=== PATIENT | male | born 1950 | race Caucasian/White ===

== ENCOUNTER 2021-12-16 09:12 | Outpatient (CLI) | payer MEDICARE, SELFPAY | END 2021-12-16 09:13 | disposition home or self-care (01) | LOC: LONREF 09:13 | PROVIDERS: PCP Family Medicine; Visit Provider Nurse Practitioner Family | DX: L08.9 Local infection of the skin and subcutaneous tissue, unspecified (principal); T14.8XXA Other injury of unspecified body region, initial encounter | CPT/HCPCS: 87070; 87186 ==

== ENCOUNTER 2021-12-17 07:57 | Outpatient (CLI) | payer MEDICARE, SELFPAY | END 2021-12-17 07:58 | disposition home or self-care (01) | PROVIDERS: PCP Family Medicine; Visit Provider Physician Assistant Surgical | DX: L97.825 Non-pressure chronic ulcer of other part of left lower leg with muscle involvement without evidence of necrosis (principal); L03.116 Cellulitis of left lower limb | CPT/HCPCS: 11042; 99213 ==

== ENCOUNTER 2021-12-24 08:02 | Outpatient (CLI) | payer MEDICARE, SELFPAY | END 2021-12-24 08:03 | disposition home or self-care (01) | LOC: WOUND 08:02 | PROVIDERS: PCP Family Medicine; Visit Provider Physician Assistant Surgical | DX: L97.825 Non-pressure chronic ulcer of other part of left lower leg with muscle involvement without evidence of necrosis (principal) | CPT/HCPCS: 11043 ==

== ENCOUNTER 2021-12-31 08:10 | Outpatient (CLI) | payer MEDICARE, SELFPAY | END 2021-12-31 08:11 | disposition home or self-care (01) | LOC: WOUND 08:10 | PROVIDERS: PCP Family Medicine; Visit Provider Physician Assistant Surgical | DX: L97.825 Non-pressure chronic ulcer of other part of left lower leg with muscle involvement without evidence of necrosis (principal) | CPT/HCPCS: 97597 ==

== ENCOUNTER 2022-01-07 07:57 | Outpatient (CLI) | payer MEDICARE, SELFPAY | END 2022-01-07 07:58 | disposition home or self-care (01) | PROVIDERS: PCP Family Medicine; Visit Provider Physician Assistant Surgical | DX: L97.825 Non-pressure chronic ulcer of other part of left lower leg with muscle involvement without evidence of necrosis (principal) | CPT/HCPCS: 11042 ==

== ENCOUNTER 2022-01-11 07:57 | Outpatient (CLI) | payer MEDICARE, SELFPAY ==
--- NOTE | 2022-01-11 08:15 | MR_ITS ---
[address] [address] Phone:?[phone] Fax:?[phone] Referring Physician Information: Zechariah Faustin [address] [facility] [address] Phone:?[phone] Fax:?[phone] Patient:Andriy Mortensen D.O.B:?1950 Sex:?Male Phone:?[phone] [facility] MRN:?[id number] Exam Date:?01/11/2022 ? EXAM: MRI EXAMINATION OF THE LEFT TIBIA AND FIBULA CLINICAL INFORMATION: The patient is a 71-year-old with left lower leg pain and swelling. The patient has an area of soft tissue ulceration. Evaluate for osteomyelitis. PRIOR SURGERY: None reported. COMPARISON STUDIES: There are no prior studies available for comparison. TECHNICAL INFORMATION: Imaging was performed on a high-field, 1.5 Jeanie MR scanner. Coronal and sagittal T1 and STIR imaging of the left lower leg was performed in addition to axial T1 and axial STIR imaging. FINDINGS: A capsule stinson the site of the patient's ulceration along the medial aspect of the lower leg, seen on axial series 8 image 17. No definite evidence for well- defined fluid collection can be seen in the region to suggest abscess. No definite evidence for well-defined changes are seen to suggest cellulitis. There is no evidence for abnormality of the visualized portions of the left tibia or left fibula. No evidence for osteomyelitis or bony abnormality can be seen. No musculotendinous abnormalities of the lower leg can be seen. There is no evidence for myotendinous strain or intramuscular mass. No definite neurovascular abnormalities are seen. CONCLUSION: 1. Soft tissue ulceration along the medial aspect of the left lower leg at the site of the patient's symptoms. There is no evidence for associated abscess, well-defined cellulitis, or osteomyelitis. 2. No musculotendinous abnormalities are seen. 3. No neurovascular abnormalities are present. AEC Electronically signed on 01/11/2022 12:13:00 PM by Frandy Hayden M.D.
== END 2022-01-11 07:58 | disposition home or self-care (01) ==
LOC: MRI 07:59
PROVIDERS: PCP Family Medicine; Visit Provider Physician Assistant Surgical
DX: L97.825 Non-pressure chronic ulcer of other part of left lower leg with muscle involvement without evidence of necrosis (principal); M79.605 Pain in left leg
CPT/HCPCS: 73718

== ENCOUNTER 2022-01-14 07:58 | Outpatient (CLI) | payer MEDICARE, SELFPAY | END 2022-01-14 07:59 | disposition home or self-care (01) | LOC: WOUND 07:58 | PROVIDERS: PCP Family Medicine; Visit Provider Physician Assistant Surgical | DX: L97.825 Non-pressure chronic ulcer of other part of left lower leg with muscle involvement without evidence of necrosis (principal) | CPT/HCPCS: 11042 ==

== ENCOUNTER 2022-01-21 07:59 | Outpatient (CLI) | payer MEDICARE, SELFPAY | END 2022-01-21 08:00 | disposition home or self-care (01) | PROVIDERS: PCP Family Medicine; Visit Provider Physician Assistant Surgical | DX: L97.825 Non-pressure chronic ulcer of other part of left lower leg with muscle involvement without evidence of necrosis (principal) | CPT/HCPCS: 11042 ==

== ENCOUNTER 2022-01-28 07:58 | Outpatient (CLI) | payer MEDICARE, SELFPAY | END 2022-01-28 07:59 | disposition home or self-care (01) | LOC: WOUND 07:58 | PROVIDERS: PCP Family Medicine; Visit Provider Physician Assistant Surgical | DX: I87.2 Venous insufficiency (chronic) (peripheral) (principal); L97.825 Non-pressure chronic ulcer of other part of left lower leg with muscle involvement without evidence of necrosis | CPT/HCPCS: 11042 ==

== ENCOUNTER 2022-02-04 08:05 | Outpatient (CLI) | payer MEDICARE, SELFPAY | END 2022-02-04 08:06 | disposition home or self-care (01) | LOC: WOUND 08:05 | PROVIDERS: PCP Family Medicine; Visit Provider Physician Assistant Surgical | DX: I87.2 Venous insufficiency (chronic) (peripheral) (principal); L97.825 Non-pressure chronic ulcer of other part of left lower leg with muscle involvement without evidence of necrosis | CPT/HCPCS: 11042 ==

== ENCOUNTER 2022-02-11 08:13 | Outpatient (CLI) | payer MEDICARE, SELFPAY | END 2022-02-11 08:14 | disposition home or self-care (01) | LOC: WOUND 08:14 | PROVIDERS: PCP Family Medicine; Visit Provider Physician Assistant Surgical | DX: I87.2 Venous insufficiency (chronic) (peripheral) (principal); L97.825 Non-pressure chronic ulcer of other part of left lower leg with muscle involvement without evidence of necrosis | CPT/HCPCS: 11042 ==

== ENCOUNTER 2022-02-18 08:31 | Outpatient (CLI) | payer MEDICARE, SELFPAY | END 2022-02-18 08:32 | disposition home or self-care (01) | LOC: WOUND 08:31 | PROVIDERS: PCP Family Medicine; Visit Provider Physician Assistant Surgical | DX: I87.2 Venous insufficiency (chronic) (peripheral) (principal); L97.825 Non-pressure chronic ulcer of other part of left lower leg with muscle involvement without evidence of necrosis | CPT/HCPCS: 11042 ==

== ENCOUNTER 2022-02-24 14:44 | Outpatient (CLI) | payer MEDICARE, SELFPAY ==
--- NOTE | 2022-02-24 15:00 | CRLHL7_ITS ---
For Patients: As a result of the Century Cures Act, medical imaging exams and procedure reports are released immediately into your electronic medical record. You may view this report before your referring provider. If you have questions, please contact your health care provider. INDICATION: PAD, BILATERAL FEET AND CALF PAIN TECHNIQUE: Bilateral lower extremity arterial duplex ultrasound with color Doppler and spectral waveform analysis. COMPARISON: None. FINDINGS: Multiple sonographic bonner-scale images demonstrate mild atherosclerotic plaque in both lower extremities. Right leg: Systolic velocities are within normal limits. Color Doppler and spectral waveform analysis demonstrates triphasic waveforms are demonstrated throughout with the exception of monophasic waveforms distally at the anterior tibial and dorsalis pedis arteries. Left leg: Systolic velocities are within normal limits. Color Doppler and spectral waveform analysis demonstrates triphasic waveforms are demonstrated throughout with the exception of monophasic waveforms distally at the anterior tibial and dorsalis pedis arteries. IMPRESSION: Minimal bilateral atherosclerosis in the lower extremity arteries contributing to monophasic waveforms distally. No major occlusions or significant stenoses. Dictated by Bhupendra Weinstein MD @ 02/25/2022 8:35:35 AM (Electronically Signed)
== END 2022-02-24 14:45 | disposition home or self-care (01) ==
LOC: US 14:45
PROVIDERS: PCP Family Medicine; Visit Provider Family Medicine
DX: M79.671 Pain in right foot (principal); M79.672 Pain in left foot; M79.662 Pain in left lower leg; I70.203 Unspecified atherosclerosis of native arteries of extremities, bilateral legs; I75.023 Atheroembolism of bilateral lower extremities
CPT/HCPCS: 93926

== ENCOUNTER 2022-02-25 08:09 | Outpatient (CLI) | payer MEDICARE, SELFPAY | END 2022-02-25 08:10 | disposition home or self-care (01) | LOC: WOUND 08:09 | PROVIDERS: PCP Family Medicine; Visit Provider Physician Assistant Surgical | DX: I87.2 Venous insufficiency (chronic) (peripheral) (principal); L97.825 Non-pressure chronic ulcer of other part of left lower leg with muscle involvement without evidence of necrosis | CPT/HCPCS: 97597 ==

== ENCOUNTER 2022-03-04 08:09 | Outpatient (CLI) | payer MEDICARE, SELFPAY | END 2022-03-04 08:10 | disposition home or self-care (01) | LOC: WOUND 08:09 | PROVIDERS: PCP Family Medicine; Visit Provider Physician Assistant Surgical | DX: I87.2 Venous insufficiency (chronic) (peripheral) (principal); L97.825 Non-pressure chronic ulcer of other part of left lower leg with muscle involvement without evidence of necrosis | CPT/HCPCS: 11042 ==

== ENCOUNTER 2022-03-18 08:11 | Outpatient (CLI) | payer MEDICARE, SELFPAY | END 2022-03-18 08:12 | disposition home or self-care (01) | LOC: WOUND 08:11 | PROVIDERS: PCP Family Medicine; Visit Provider Physician Assistant Surgical | DX: I87.2 Venous insufficiency (chronic) (peripheral) (principal); L97.825 Non-pressure chronic ulcer of other part of left lower leg with muscle involvement without evidence of necrosis | CPT/HCPCS: 99212 ==

== ENCOUNTER 2022-04-28 14:53 | Outpatient (CLI) | payer MEDICARE, SELFPAY ==
[2022-04-28 12:56] LABS: Albumin* 4.1 g/dL (3.3-5.0)
[2022-04-28 12:57] LABS: Chloride* 107 mmol/L (96-114); Potassium* 4.4 mmol/L (3.6-5.1); Sodium* 140 mmol/L (135-149)
[2022-04-28 12:59] LABS: Cholesterol* 126 mg/dL (90-199); Creatinine* 0.8 mg/dL (0.5-1.5); Estimated Glomerular Filt Rate 96 ml/min
[2022-04-28 13:00] LABS: Alanine Aminotransferase* 21 U/L (4-50); Alkaline Phosphatase* 87 U/L (40-150); Aspartate Amino Transferase* 20 U/L (12-35); Bilirubin Total* 0.6 mg/dL (0.1-1.5); Blood Urea Nitrogen* 22 mg/dL (7-30); Carbon Dioxide* 26 mmol/L (20-32); Glucose* 112 mg/dL (60-115); Triglycerides* 93 mg/dL (40-149)
[2022-04-28 13:01] LABS: Calcium* 9.1 mg/dL (8.4-10.6); HDL Cholesterol* 43 mg/dL (>=40); LDL Cholesterol Calculated 64 mg/dL (<100)
[2022-04-28 13:31] LABS: PSA Screen* 0.77 ng/mL (0.10-4.00)
== END 2022-04-28 14:54 | disposition home or self-care (01) ==
PROVIDERS: PCP Family Medicine; Visit Provider Family Medicine
DX: E78.5 Hyperlipidemia, unspecified (principal); I10 Essential (primary) hypertension; I48.91 Unspecified atrial fibrillation; Z12.5 Encounter for screening for malignant neoplasm of prostate
CPT/HCPCS: 80053; 80061; 84153

== ENCOUNTER 2022-11-30 08:50 | Outpatient (CLI) | payer MEDICARE, SELFPAY | END 2022-11-30 08:51 | disposition home or self-care (01) | LOC: NFLDREF 12-01 07:43 | PROVIDERS: PCP Family Medicine; Referring Provider Family Medicine; Visit Provider Family Medicine | DX: Z79.01 Long term (current) use of anticoagulants (principal) | CPT/HCPCS: 85610 ==

== ENCOUNTER 2023-01-02 10:18 | Outpatient (CLI) | payer MEDICARE, SELFPAY | END 2023-01-02 10:19 | disposition home or self-care (01) | LOC: NFLDREF 01-06 09:15 | PROVIDERS: PCP Family Medicine; Referring Provider Family Medicine; Visit Provider Family Medicine | DX: Z51.81 Encounter for therapeutic drug level monitoring (principal); Z79.01 Long term (current) use of anticoagulants | CPT/HCPCS: 85610 ==

== ENCOUNTER 2023-05-24 07:33 | Outpatient (CLI) | payer MEDICARE, SELFPAY ==
--- OUTSIDE RECORDS SUMMARY | 2023-05-26 10:35 | XMS_ITS | Clinical Summary ---
Author Name Unknown Organization [facility] Address [place], [place] [address] Care Team Providers Care Steam Press Tender Name Role Phone Darron Garcia MD Primary Care Provider [phone] Allergies No known active allergies Medications Medication Sig Dispensed Refills Start Date End Date Status metoprolol succinate (TOPROL XL) 100 mg Sustained-Release tablet Take 150 mg by mouth once daily. 0 02/04/2017 Active DIGOX 250 mcg tablet Take 250 mcg by mouth once daily. 0 02/04/2017 Active losartan (COZAAR) 100 mg tablet Take 1 tablet by mouth once daily. 0 03/06/2020 Active simvastatin (ZOCOR) 20 mg tablet Take 1 tablet by mouth at bedtime. 0 03/06/2020 Active warfarin (COUMADIN) 5 mg tablet 0 06/19/2020 Active Active Problems Problem Noted Date Diagnosed Date Malignant neoplasm of urinary bladder 02/17/2016 Immunizations Name Administration Dates Next Due Hepatitis A (Adult) 06/12/2007,09/18/20062006 Inactivated Polio Vaccine 09/15/2006 Tdap 09/15/2006 Typhoid (injectable) 09/15/2006 Social History Tobacco Use Types Packs/Day Years Used Date Smoking Tobacco: Light Smoker Cigars Smokeless Tobacco: Never Tobacco Cessation:Ready to Q uit: No; Counseling Given: Yes Alcohol Use Standard Drinks/Week Comments Yes 0 (1 standard drink = 0.6 oz pur e alcohol) few times per week Social Connections Answer Date Recorded Frequency of Communication with Friends and Fami ly Not on file 05/15/2021 Financial Resource Strain Answer Date R ecorded Difficulty of Paying Living Expenses Not on file 05/15/2021 Difficulty of Paying Living Expenses Not on file 05/15/2021 Sex and Gender Information Value Date Recorded Sex Assigned at Not on file Gender Identity Not on file Sexual Orientation Not on file Obstetrics History Last Filed Vital Signs Vital Sign Reading Time Taken Comments Blood Pressure 157/91 07/20/2020 8:56 AM QUILLER MACHINE FIXER Pulse 88 07/20/2020 8:56 AM QUILLER MACHINE FIXER Temperature - - Respiratory Rate 16 07/20/2020 8:56 AM QUILLER MACHINE FIXER Oxygen Saturation 98% 07/20/2020 8:5 6 AM QUILLER MACHINE FIXER Inhaled Oxygen Concentration - - Weight 110 kg (242 lb 8 oz) 07/20/2020 8:56 AM QUILLER MACHINE FIXER Pt weighed with shoes on. Height - - Body Mass Index - - Plan of Treatment Health Maintenance Due Date Last Done Comments Pneumococcal series for age 65+ (1 of 2 - PCV) 1958 Depression screening for age 12+ 1964 BMI (ht and wt on same day) for age 18+ 1970 Hepatitis C screening for ag e 18-79 1970 Colonoscopy through age 75 1997 Lipids for age 45-75 1997 Zoster (shingles) series for age 50+ (1 of 2) 2002 Tetanus booster 09/15/2016 09/15/2006 Medicare Wellness for age 65+ 2017 COVID-19 vaccine series (2022- season) 2023 03/28/2022, 12/06/2021, 03/31/2021, Additional history exists Influenza for age 65+ 01/13/2023 Tdap Completed 09/15/2006 Care Teams Steam Press Tender Relationship Specialty Start Date End Date Darron Garcia MD [address] [place] [phone] PCP - General Family Practice 03/28/18
== END 2023-05-24 07:34 | disposition home or self-care (01) ==
LOC: NFLDREF 05-26 10:33
PROVIDERS: PCP Family Medicine; Referring Provider Family Medicine; Visit Provider Family Medicine
DX: Z00.00 Encounter for general adult medical examination without abnormal findings (principal); E78.5 Hyperlipidemia, unspecified; Z12.5 Encounter for screening for malignant neoplasm of prostate; R73.03 Prediabetes; I48.91 Unspecified atrial fibrillation; Z79.01 Long term (current) use of anticoagulants
CPT/HCPCS: 80053; 80061; G0103

== ENCOUNTER 2023-06-06 11:09 | Outpatient (CLI) | payer MEDICARE, SELFPAY ==
--- OUTSIDE RECORDS SUMMARY | 2023-06-08 13:33 | XMS_ITS | Data Portability ---
Author Name Unknown Address [address] [place] [address] Phone [phone] Organization [facility] Address [address] [facility] [address] [place] [address] Assessment No assessment recorded. Plan of Treatment Reminders Order Date Submit Date Provider Last Modified By Organization Details Last Modified Time Details Appointments None recorded. Lab urinalysis, dipstick 2022 023 [email or web address] [facility], [address], [place], [address], 15:44:09 Referral None recorded. Procedures cystoscopy (PROC) 2022 Kailyn shea Not available 07:37:56 Surgeries None recorded. Imaging None recorded. Medication Orders tamsulosin 0.4 mg capsule 2022 023 [id number], [address] [place], [place], [id number], 16:11:29 Patient TargetsNo targets recorded. Patient InstructionsNo instructions recorded. Reason for Referral None Reported. Results Created Date Observation Date Name Description Value Unit Range Abnormal Flag LastModifiedBy Organization Detail LastModifiedTime 06/21/1906/21/2022 urina lysis , dipst ick pH-Status 7.0 Not Available [facility] [address], [place], [address], 06/21/2022 15:43:44 06/21/19 23 06/21/2022 urina lysis , dipst ick Blood-Status Trace Not Available [facility] [address], [place], [address], 06/21/2022 15:43:44 Result Notes None recorded. Problems Name Status Onset Date Resolution Date Notes Provider Name and Address Organization Details Recorded Time Primary malignant neoplasm of bladder Active 08/29/19 12 188.9 : CARCINOM A-BLADDE R Not Available [facility] 10/31/2019 02:03:14 Problem Notes None recorded. Procedures Surgical History Date Name Laterality Status Provider Name and Address Organization Details Recorded Time 3 Cystoscopy- male completed Jose Lopez MD [address] [place] [address],[address], [address], [facility] 06/21/2022 18:35:04 3 Keflex post Cysto completed Celi caballero [facility] 06/21/2022 15:56:01 procedure on bladder completed Jose Lopez MD [address] [place] [address],[address], [place], [address], [facility] 06/21/2022 15:47:33 Imaging Results None recorded. Procedure Notes None recorded. Medical Equipment None Reported. Allergies No known drug allergies Medications Name Sig Start Date Stop Date Status Note LastModified by Organization Details LastModified Time Zocor 20 mg tablet Take 1 tablet every day by oral route. active Not Available Not Available No t Available Toprol XL 100 mg tablet,exte nded release Take 1 tablet every day by oral route. active Not Available Not Available No t Available tamsulosin 0.4 mg capsule Take 1 capsule every day by oral route. 2022 active Not Available Not Available Not Avai lable Coumadin 5 mg intravenous solution Inject by intraveno us route. active Not Available Not Available No t Available Cozaar 100 mg tablet Take 1 tablet every day by oral route. active Not Available Not Available No t Available Digox 250 mcg (0.25 mg) tablet Take 1 tablet every day by oral route. 06/21 completed Not Available Not Available Not Available Vitals Date Recorded Body weight Body mass index (BMI) Body height Provider Name and Address Organization Details Last Updated DateTime 06/21/2022 778724.39 g 34 kg/m2 177.8 cm Jose Lopez MD [address] [facility] [address], [place], [address] 06/21/2022 15:45:24 Social History Question Answer Notes LastModified by Organizat ion Details LastModified Time Tobacco Smoking Status Former Smoker Jose Lopez MD [address] [facility] [address], [address] 06/21/2022 15:47:09 What Is Your Level Of Alcohol Consumption? Moderate Information not available 06/21/2022 What Is Your Level Of Caffeine Consumption? Moderate Information not available 06/21/2022 When Did You Quit Smoking? 16+yearssincel astcigarette Information not available 06/21/2022 What Was The Date Of Your Most Recent Tobacco Screening? 06/21/2022 Information not available 06/21/2022 Sex: Male Functional Status None recorded. Mental Status None recorded. Family History Nothing Reported. Medical History Condition Response Diabetes N Sexually Transmitted Infection N Other N Bleeding Disorder N High Blood Pressure Y Kidney Stones N Cancer Y Lung Disease N Depression N High Cholesterol Y GERD/Acid Reflux N Heart Disease N Immunizations Vaccine Type Date Status Provider Name and Address Organization Details Recorded Time IPV 09/15/2006 completed Laura caballero [facility] 04/13/2023 09:16:04 influenza, high-dose, quadrivalent 03/23/2021 completed Laura caballero [facility] 04/13/2023 09:16:04 influenza, high-dose, quadrivalent 04/28/2022 [facility] 04/13/2023 09:16:04 COVID-19, mRNA, LNP-S, PF, 100 mcg/0.5mL dose or 50 mcg/0.25mL dose 07/15/2020 completed Laura caballero [facility] 04/13/2023 09:16:04 COVID-19, mRNA, LNP-S, PF, 100 mcg/0.5mL dose or 50 mcg/0.25mL dose 08/14/2020 completed Laura Allar null, [facility] 04/13/2023 09:16:04 COVID-19, mRNA, LNP-S, PF, 100 mcg/0.5mL dose or 50 mcg/0.25mL dose 12/06/2021 completed Laura Allar null, [facility] 04/13/2023 09:16:04 COVID-19, mRNA, LNP-S, PF, 100 mcg/0.5mL dose or 50 mcg/0.25mL dose 03/31/2021 completed Laura Allar null, [facility] 04/13/2023 09:16:04 COVID-19, mRNA, LNP-S, bivalent, PF, 50 mcg/0.5 mL or 25mcg/0.25 mL dose 03/28/2022 completed Laura Allar null, [facility] 04/13/2023 09:16:04 pneumococcal polysaccharide PPV23 01/31/2019 completed Laura Allar null, [facility] 04/13/2023 09:16:04 Tdap 09/15/2006 completed Laura Allar null, [facility] 04/13/2023 09:16:04 Tdap 11/14/2016 completed Laura Allar null, [facility] 04/13/2023 09:16:04 Pneumococcal conjugate PCV 13 01/24/2018 completed Laura Allar null, [facility] 04/13/2023 09:16:05 Influenza, seasonal, injectable, preservative free 04/05/2011 completed Laura Allar null, [facility] 04/13/2023 09:16:05 Hep A, adult 06/12/2007 completed Laura Allar null, [facility] 04/13/2023 09:16:05 Hep A, adult 09/15/2006 completed Laura Allar null, [facility] 04/13/2023 09:16:05 typhoid, ViCPs 09/15/2006 completed Laura Allar null, [facility] 04/13/2023 09:16:05 Past Encounters Encounter ID Performer Location Encounter Start Date Encounter Closed Date Diagnosis/Indication [id number] Jose Lopez MD [facility] [address] [place] [address] 06/21/2022 15:25:40 06/24/2022 14:57:40 History of malignant neoplasm of bladder Benign prostatic hyperplasia with outflow obstruction Health Concerns Section Related Observation LastModified by Organization Detai ls LastModified Time None Recorded Concern Status LastModified by Organization Details LastModified Time None Recorded Advance Directives Directive None Recorded Payers Encounter Date Sequence Insurance Name Policy Number Policy Clemens Covered Member ID Clemens Member ID Guarantor Name 06/21/2022 1 [facility] [place] [employer] - MEDICARE COST [id number] John Mortensen [id number] John Mortensen Notes Date Note Type Note Provider Name and Address Organization Details Recorded Time 06/21/2022 text/html HPI Notes: 71 yo male with H/O superficial bladder cancer [place] [address] Ashby - no recurrence to date. 07/20/20 - He presents for his annual follow-up for bladder cancer. He reports no change in urination. He voids every 2-3 hours during the day and 1x/night. He denies hematuria, urgency, and dysuria. 06/21/22 - He presents for follow-up on bladder cancer. He reports hesitancy and slow stream. He voids every 1-2 hours during the day and 1-2x/night. He denies dysuria. - UA - trace blood - no LE PSA - 0.73 (08/29/13) - 0.75 (01/24/18) Jose Lopez MD [address] [place] [address],[address], [address], [facility] 06/21/2022 18:35:41
--- OUTSIDE RECORDS SUMMARY | 2023-06-08 13:33 | XMS_ITS | Clinical Summary ---
Author Name Unknown Organization [facility] Address [place], [place] [address] Care Team Providers Care Contracting Executive Name Role Phone Darron Garcia MD Primary Care Provider [phone] Allergies No known active allergies Medications Medication [...] Comments Blood Pressure 157/91 07/20/2020 8:56 AM STUDENT MINISTRIES DIRECTOR Pulse 88 07/20/2020 8:56 AM STUDENT MINISTRIES DIRECTOR Temperature - - Respiratory Rate 16 07/20/2020 8:56 AM STUDENT MINISTRIES DIRECTOR Oxygen Saturation 98% 07/20/2020 8:5 6 AM STUDENT MINISTRIES DIRECTOR Inhaled Oxygen Concentration - - Weight 110 kg (242 lb 8 oz) 07/20/2020 8:56 AM STUDENT MINISTRIES DIRECTOR Pt weighed with shoes on. Height - [...] 65+ 01/13/2023 Tdap Completed 09/15/2006 Care Teams Contracting Executive Relationship Specialty Start Date End Date Darron Garcia MD [address] [place] [phone] PCP - General Family Practice 03/28/18
== END 2023-06-06 11:10 | disposition home or self-care (01) ==
LOC: NFLDREF 06-08 13:31
PROVIDERS: PCP Family Medicine; Referring Provider Family Medicine; Visit Provider Family Medicine
DX: R73.01 Impaired fasting glucose (principal)
CPT/HCPCS: 82947

== ENCOUNTER 2023-11-01 08:15 | Outpatient (CLI) | payer MEDICARE, SELFPAY ==
--- OUTSIDE RECORDS SUMMARY | 2023-11-09 14:17 | XMS_ITS | Clinical Summary ---
Author Organization [facility] Address [place], [place] [address] Care Team Providers Care Pigment And Lacquer Mixer Name Role Phone Darron Garcia MD Primary Care Provider [phone] Allergies No known active allergies Medications Medication Sig Dispensed Refills Start Date End Date Status losartan (COZAAR) 100 mg tablet Take 1 tablet by mouth once daily. 0 03/06/2020 Active simvastatin (ZOCOR) 20 mg tablet Take 1 tablet by mouth at bedtime. 0 03/06/2020 Active warfarin (COUMADIN) 5 mg tablet 06/19/2020 Active metoprolol succinate (TOPROL XL) 100 mg Sustained-Release tablet Take 2 Tablets (200 mg) by mouth once daily. 08/09/2023 Active hydroCHLOROthiazide (HCTZ) 25 mg tabletIndications:HTN (hypertension) Take 0.5 Tablets (12.5 mg) by mouth once daily. 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 90 Tablet 3 08/11/2023 Active Active Problems Problem Noted Date Diagnosed Date Malignant neoplasm of urinary bladder 02/17/2016 Encounters Date Type Department Care Team Description 08/11/2023 9:00 AM CDT Office Visit [facility] [address] [place], [place] [id number] Bhupendra Ybarra MD Follow Up from Last 3 Months Immunizations Name Administration Dates Next Due Hepatitis [...] Sign Reading Time Taken Comments Blood Pressure 144/82 08/11/2023 9:23 AM CDT Pulse 82 08/11/2023 9:23 AM CDT Temperature - - Respiratory Rate 14 08/11/2023 9:23 AM CDT Oxygen Saturation 98% 07/20/2020 8:56 AM CHERRY DIPPER Inhaled Oxygen Concentration - - Weight 114.8 kg (253 lb) 08/11/2023 9:23 AM CDT Height - - Body Mass Index - [...] Additional history exists Influenza for age 65+ 01/14/2024 Tdap Completed 09/15/2006 Care Teams Pigment And Lacquer Mixer Relationship Specialty Start Date End Date Darron Garcia MD [address] [place] [address] PCP - General Family Practice 03/28/18
== END 2023-11-01 08:16 | disposition home or self-care (01) ==
LOC: NFLDREF 11-09 14:16
PROVIDERS: PCP Family Medicine; Referring Provider Family Medicine; Visit Provider Family Medicine
DX: I48.20 Chronic atrial fibrillation, unspecified (principal); Z79.01 Long term (current) use of anticoagulants
CPT/HCPCS: 85610

== ENCOUNTER 2024-05-09 11:52 | Outpatient (CLI) | payer MEDICARE, SELFPAY | END 2024-05-09 11:53 | disposition home or self-care (01) | LOC: NFLDREF 05-12 02:45 | PROVIDERS: PCP Family Medicine; Referring Provider Family Medicine; Visit Provider Family Medicine | DX: Z79.01 Long term (current) use of anticoagulants (principal) | CPT/HCPCS: 85610 ==

== ENCOUNTER 2024-06-07 10:11 | Outpatient (CLI) | payer MEDICARE, SELFPAY | END 2024-06-07 10:12 | disposition home or self-care (01) | LOC: NFLDREF 06-17 00:18 | PROVIDERS: PCP Family Medicine; Referring Provider Family Medicine; Visit Provider Family Medicine | DX: I48.91 Unspecified atrial fibrillation (principal); E78.5 Hyperlipidemia, unspecified; R73.03 Prediabetes; Z12.5 Encounter for screening for malignant neoplasm of prostate | CPT/HCPCS: 80053; 80061; G0103 ==

== ENCOUNTER 2024-09-06 09:43 | Outpatient (CLI) | payer MEDICARE, SELFPAY ==
[2024-09-06] MEDS: PERFLUTREN LIPID MICROSPHERES 2 ML VIAL IVP (10:34)
== END 2024-09-06 09:44 | disposition home or self-care (01) ==
PROVIDERS: PCP Family Medicine; Visit Provider Internal Medicine Cardiovascular Disease
DX: I48.91 Unspecified atrial fibrillation (principal)
CPT/HCPCS: 93306; Q9957

== ENCOUNTER 2024-10-28 08:46 | Outpatient (CLI) | payer MEDICARE, SELFPAY ==
--- NOTE | 2024-10-28 09:58 | P.ANES_ITS ---
Anesthesia Charges Start Date/Time Anesthesia Start Date: 10/28/24 Anesthesia Start Time: 09:15 Stop Date/Time Anesthesia Stop Date: 10/28/24 Anesthesia Stop Time: 09:50 Coding CPT Codes CPT Codes: ANES LWR INTST NDSC NOS - 94380 ([id number]) P3 - PATIENT W/SEVERE SYS DISEASE, QX - MULTI DISCIPLINED LANGUAGE ANALYST SVC W/ MD MED DIRECTION, QK - BOX PRINTER 2-4 CNCRNT ANES PROC
--- NOTE | 2024-10-28 09:58 | W.ANESCHARGE ---
Anesthesia Charges Start Date/Time Anesthesia Start Date: 10/28/24 Anesthesia Start Time: 09:15 Stop Date/Time Anesthesia Stop Date: 10/28/24 Anesthesia Stop Time: 09:50 Coding CPT Codes CPT Codes: ANES LWR INTST NDSC NOS - 77786 ([id number]) P3 - PATIENT W/SEVERE SYS DISEASE, QX - HONEY EXTRACTOR SVC W/ MD MED DIRECTION, QK - PROFESSOR OF LITERATURE 2-4 CNCRNT ANES PROC
--- NOTE | 2024-10-28 11:28 | P.ANES_ITS ---
Anesthesia Charges Start Date/Time Anesthesia Start Date: 10/28/24 Anesthesia Start Time: 09:15 Stop Date/Time Anesthesia Stop Date: 10/28/24 Anesthesia Stop Time: 09:50 Summary Extremes of Age - Over 70 or under 1: MDA Coding CPT Codes CPT Codes: ANES LWR INTST NDSC NOS - 88217 ([id number]) QK - POWER DISTRIBUTION ENGINEER 2-4 CNCRNT ANES PROC, QX - AMMUNITION AND EXPLOSIVES HANDLER SVC W/ MD MED DIRECTION, P3 - PATIENT W/SEVERE SYS DISEASE Additional Codes: Summary - Extremes of Age - Over 70 or under 1: MDA ([id number])
== END 2024-10-28 08:47 | disposition home or self-care (01) ==
LOC: OP CLINIC 08:47
PROVIDERS: PCP Family Medicine; Visit Provider Internal Medicine
DX: Z12.11 Encounter for screening for malignant neoplasm of colon (principal); D12.4 Benign neoplasm of descending colon; K57.30 Diverticulosis of large intestine without perforation or abscess without bleeding; Z86.0100 Personal history of colon polyps, unspecified
CPT/HCPCS: 00811; 45385; 88305; 99100; J2704